=== PATIENT | male | born 1985 | race Caucasian/White ===

== ENCOUNTER 2023-08-05 11:04 | Emergency (ER) | payer OTHER, SELFPAY ==
[2023-08-05 11:09] VITALS: BP 141/98
--- NOTE | 2023-08-05 12:03 | ED.GENMED ---
History of Present Illness
General
Chief Complaint: Male Genito-Urinary Symptoms
Source: patient
Time Seen by Provider: 08/05/23 11:42
Travel History
Have you had any contact with someone who has COVID-19?: No
Do you have any symptoms of coronavirus? Fever > 100 degrees, chills, cough, shortness of breath, sore throat, loss of taste or smell, muscle aches, or headache?: No
History of Present Illness
History of Present Illness:
37-year-old male presenting the emergency department for evaluation after on July 26 he had 4 to 5 hours of persistent nausea and vomiting and subsequently developed generalized fatigue, weakness and pain in his right hip that has been constant, no
exacerbating or alleviating factors with pain now radiating towards his right groin. Patient states that the nausea and vomiting episodes have been occurring every few weeks and that he has not had any workup for this. Patient came into the
emergency department today due to concern of the persistent symptoms but also notes that he had a recent friend who had her from pancreatic cancer at a young age and he wanted to make sure everything was okay. He denies any
fevers, chills, rigors, current nausea or vomiting, bowel changes or urinary symptoms. Patient did go to urgent care this past Sunday where he had a urinalysis done which was unremarkable and the culture did not grow any bacteria.
Past History
Past History
ED Past Medical History: None
ED Past Surgical History: None
Social History
Tobacco: Non-smoker
Alcohol: Occasional
Drug: None
Personal:
Living: with family
Employment: Employed
Review of Systems
Review of Systems
All Other Systems: ROS reviewed and negative except as documented in HPI and ROS
Phy Exam
Physical Exam
Physical Exam:
GENERAL: Alert , in no apparent distress
EYE: clear conjunctiva b/l
HEAD: NCAT
ENT: o/p clr, mmm.
CARDIAC: Regular rate and rhythm .
LUNGS: Clear breath sounds bilaterally, no acute respiratory distress, no wheezes/rales/rhonchi
ABDOMEN: Soft, without focal tenderness, no r/g, no cvat, no tenderness at McBurney's point
Genitourinary: Circumcised, positive cremasteric reflex bilateral, no hernia, no testicular tenderness or edema
NEUROLOGICAL: Alert and oriented
SKIN: Warm and dry, skin intact.
MUSCULOSKELETAL: No edema, well perfused.
PSYCH: Normal and appropriate interaction.
Scores
Heart Failure Risk
Heart Failure Risk Score: Not Applicable
Heart Score for Chest Pain Patients
STEMI patient?: Not applicable
Withdrawal Assessment of Alcohol
Withdrawal Assessment Completed?: Not applicable
Course
Orders/Labs/Results
Orders:
Orders
08/05/23 11:59
CT Abd/pelvis W Iv Cont Urgent
Comment:
Reason For Exam: right hip pain, moving towards groin, hx stones
08/05/23 12:08
Complete Blood Count/With Diff Urgent
Comprehensive Metabolic Panel Urgent
Lipase Urgent
Abnormal Lab Results
08/05/23
12:08
MCH 31.6 H pg
(27.0-31.0)
Absolute Neuts (auto) 6.9 H 10^3/uL
(1.4-6.5)
Lymphocytes % 18.3 L %
(20.5-51.1)
Glucose 103 H mg/dl
(70-99)
Calcium 10.4 H mg/dl
(8.4-10.2)
Albumin 5.1 H g/dl
(3.5-5.0)
08/05/23 12:08
08/05/23 12:08
Vital Signs
Initial and Last Documented VS:
Initial Vital Signs
Temp Pulse Resp BP Pulse Ox
97.9 F 95 17 141/98 100
08/05/23 11:09 08/05/23 11:09 08/05/23 11:09 08/05/23 11:09 08/05/23 11:09
Last Documented Vital Signs
Temp Pulse Resp BP Pulse Ox
97.9 F 67 18 141/76 100
08/05/23 11:09 08/05/23 15:49 08/05/23 15:49 08/05/23 15:49 08/05/23 15:49
MDM/Problems Addressed
Differential Diagnosis Includes:
Serum sickness, anxiety, no concern for hernia or kidney stone, appendicitis considered given right-sided pain however patient's pain is mainly on the right hip and not within the abdomen 37-year-old
MDM/Problems Addressed:
37-year-old male presenting emergency department for evaluation of generalized weakness/fatigue, right-sided hip pain after having a few hours of vomiting about 10 days ago. Was evaluated at urgent care with no abnormal findings on urinalysis and
urine culture. Overall exam here is very reassuring. Unclear as to patient's etiology for his intermittent nausea and vomiting episodes. Possible viral etiology. Will obtain labs and CT imaging. Anticipate discharge home.
*Pulse Oximetry
Patient hypoxic: no
*Critical Care Note
Total Time (30-74mins, 75-104mins- exclusive of procedures): Not Applicable
Data Reviewed
Review of Other/Old Records Reveals: Labs and Radiology Studies
Patient Management
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
Escalation/DeEscalation of care consider admission/obs:
2:23 PM: Patient CT scan shows concern for possible appendicitis. Patient's abdomen is reassuring and he is not having any right lower quadrant pain however given the CT read I notified general surgery who will come to the emergency department to
evaluate the patient to help with disposition planning.
3:45 PM: Patient seen and evaluated by general surgery who does not feel patient's symptoms are likely acute appendicitis but do recommend a treatment course of Augmentin twice daily x 10 days and outpatient follow-up in office. Patient advised on
return precautions emergency department for any worsening pain, fevers, vomiting or any other concerns he may have. Patient is in agreement with this plan. Stable for discharge home.
ED Attending Note
-
Portions of this chart may have been created with voice recognition software.� Occasional wrong word or��sound alike� substitutions may have occurred due to the inherent limitations of voice recognition software.
Discharge Plan
Departure
Patient Disposition: Home (Routine Discharge)
Date of Disposition: 08/05/23
Time of Disposition: 15:48
Patient with high blood pressure during this ER visit?: No
Discharge Problem:
Abdominal pain
Prescriptions:
New
amoxicillin-pot clavulanate 875-125 mg tablet
1 tab PO BID 10 Days Qty: 20 0RF
No Action
dicyclomine 20 mg tablet
20 mg PO QID PRN (Reason: abdominal pain) Qty: 10 0RF
ondansetron 4 mg tablet,disintegrating
4 mg PO Q8H PRN (Reason: nausea and vomiting) Qty: 10 0RF
pantoprazole [Protonix] 40 mg tablet,delayed release (DR/EC)
40 mg PO DAILY Qty: 20 0RF
Referrals:
Severo Hopper MD [Active] - (Surgery - Call for appointment)
UNKNOWN - PT DOES,NOT KNOW [Family Provider] -
Interventions
Interventions:
*Risk Screen - Suicide Last Done: 08/05/23 12:12
*General Assessment Last Done: 08/05/23 12:12
*Neglect/Abuse Screening Last Done: 08/05/23 12:12
ED- Fall Risk Assessment Last Done: 08/05/23 12:12
*ED COVID-19 Vaccine History Last Done: 08/05/23 12:12
*Nursing Disposition Last Done: 08/05/23 15:54
ED-Male Genitourinary Assessment Last Done: 08/05/23 12:11
Discharge Date and Time
Discharge Date/Time: 08/05/23 15:56
Print Language: SETSWANA
[2023-08-05 12:25] LABS: % Basophils 0.6 % (0-2); % Eosinophils 0.1 % (0-6); % Immature Granulocytes 0.2 % (0-0.5); % Lymphocytes 18.3 % (20.5-51.1); % Monocytes 6.3 % (1.7-9.3); % Neutrophils 74.5 % (42.2-75.2); Absolute Basophils 0.1 10^3/uL (0-0.2); Absolute Lymphocytes 1.7 10^3/uL (1.2-3.4); Absolute Monocytes 0.6 10^3/uL (0.1-0.6); Absolute Neutrophils 6.9 10^3/uL (1.4-6.5); Hemoglobin 15.4 g/dL (13.0-18.0); Mean Corpuscular Hgb 31.6 pg (27.0-31.0); Mean Corpuscular Volume 90.2 fL (80.0-94.0); Mean Platelet Volume 9.8 fL (7.4-10.4); Nucleated Red Blood Cells % 0 % (-); Platelet Count 270 10^3/uL (130-400); Red Blood Cell Count 4.88 10^6/uL (4.70-6.10); Red Cell Dist. Width 12.7 % (11.5-14.5); White Blood Cell Count 9.3 10^3/uL (4.8-10.8)
[2023-08-05 12:35] LABS: ALT (SGPT) 27 U/L (0-50); AST (SGOT) 26 U/L (17-59); Albumin 5.1 g/dl (3.5-5.0); Alkaline Phosphatase 54 U/L (38-126); Blood Urea Nitrogen 20 mg/dl (9-20); Calcium 10.4 mg/dl (8.4-10.2); Carbon Dioxide 26 mmol/L (22-30); Chloride 105 mmol/L (98-107); Glucose 103 mg/dl (70-99); Lipase 49 U/L (23-300); Potassium 4.2 mmol/L (3.5-5.1); Sodium 137 mmol/L (135-145); Total Bilirubin 0.9 mg/dl (0.2-1.3); Total Protein 7.9 g/dl (6.3-8.2); eGFR > 60.00
[2023-08-05 14:35] VITALS: BP 130/81
[2023-08-05 15:49] VITALS: BP 141/76
--- NOTE | 2023-08-05 15:51 | CON.GS ---
Consultation
-
Requesting Provider: Quintin
Performing Provider: Marcela Hopper
Reason for Consultation: ?appendicitis
Medical History
-
Chief Complaint: poor appetite
History of Present Illness:
This is a 37 yo male with a history of renal stones and ureteroscopy who presents with right groin pain which began about 1 week ago. He notes that about 9 days ago, he had an evening of nausea with vomiting with onset of discomfort and has not had
much of an appetite since. He presents today at the urging of his mother given the length of his symptoms. He denies changes to bowel or bladder habits. He did present to urgent care about 5 days ago as he was concerned that his pain was related to
a kidney stone with UA done at that time and negative. There is a very small focal area of tenderness to the right inguinal region without hernia or palpable mass noted. No abdominal tenderness. He denies fevers or chills at home. For the past week,
he has just been drinking liquids and eating toast or applesauce due to loss of appetite and general discomfort with eating. Today, he went to the gym for his normal work out but was feeling discomfort and generally unwell and walked on the
treadmill for an hour instead of his usual work out of heavy lifting.
Past Medical History
Past Medical History: Other (Nephrolithiasis)
Past Surgical History: Urological (Uretersocopy/laser lithotripsy)
Social History
Tobacco: Non-Smoker
Alcohol: None
Personal:
Living: With Family
Family History
Family History: Reviewed & Not Pertinent
Allergies / Home Medications
Allergy/AdvReac Type Severity Reaction Status Date / Time
acetaminophen [From Tylenol] Allergy Anaphylaxis Verified 09/27/22 03:54
aspirin Allergy Tongue Verified 09/27/22 03:54
Swelling
ibuprofen Allergy Anaphylaxis Verified 09/27/22 03:54
[From DayQuil Sinus
Pressure/Pain]
NSAIDS (Non-Steroidal Allergy Anaphylaxis Verified 09/27/22 03:54
Anti-Inflamma
pseudoephedrine HCl Allergy Anaphylaxis Verified 09/27/22 03:54
[From DayQuil Sinus
Pressure/Pain]
�Medication �Instructions �Recorded �Confirmed �Type
dicyclomine 20 mg tablet 20 mg PO QID PRN abdominal pain 09/27/22 Rx
#10 tabs
ondansetron 4 mg disintegrating 4 mg PO Q8H PRN nausea and 09/27/22 Rx
tablet vomiting #10 tabs
pantoprazole 40 mg tablet,delayed 40 mg PO DAILY #20 tabs 09/27/22 Rx
release (Protonix)
amoxicillin 875 mg-potassium 1 tab PO BID 10 days #20 tabs 08/05/23 Rx
clavulanate 125 mg tablet
Review of Systems
-
History Source: Patient and Family
All other systems: Negative unless noted
A 10 point review of systems was completed, and was negative except as per HPI.
Physical Exam
Vital Signs
Temp Pulse Resp BP Pulse Ox
97.9 F 67 18 141/76 100
08/05/23 11:09 08/05/23 15:49 08/05/23 15:49 08/05/23 15:49 08/05/23 15:49
Lab Results
08/05/23 12:08
08/05/23 12:08
WBC 9.3 10^3/uL (4.8-10.8) 08/05/23 12:08
Hgb 15.4 g/dL (13.0-18.0) 08/05/23 12:08
Hct 44.0 % (39.0-52.0) 08/05/23 12:08
Plt Count 270 10^3/uL (130-400) 08/05/23 12:08
Abs Immat Gran (auto) 0.0 10^3/uL (0-0.05) 08/05/23 12:08
Neutrophils % 74.5 % (42.2-75.2) 08/05/23 12:08
Physical Exam
General: Well Developed, Well Nourished and No Apparent Distress
HEENT: Normocephalic
Respiratory: Non Labored Respirations
Cardiac: Regular Rhythm
GI: Soft, Non Tender and Normal Bowel Sounds
Genito-urinary: Other (right inguinal area with very small area of tenderness, tense with exam); Negative Inguinal Hernia
Skin: Warm and Dry
Neuro: Awake and AO x 3
Psych: Other (anxious)
Data Reviewed
-
CT Scan: Image Personally Visualized and interpreted, Report Reviewed by me, Discussed with Physician, Discussed with Nurse, Discussed with Patient and Discussed with Family
Labs: Labs Reviewed by me, Discussed with Physician, Discussed with Nurse, Discussed with Patient and Discussed with Family
Old Records: Reviewed
Assessment / Plan
-
37 yo male with PMH of nephrolithiasis and ureteroscopy who c/o poor appetite and right inguinal pain x7-9 days. Episode of nausea and vomiting at beginning of symptoms but none since. No leukocytosis or fevers. Benign exam. CT imaging with enlarged
appendix without appendicolith, no surrounding inflammation/stranding. Discussed CT findings with patient. Possible mild appendicitis vs right groin strain. Discussed options with patient including surgical intervention with lap appendectomy vs
course of antibiotics.
--Start PO Augmentin x10 day course
--PO challenge
--If tolerating PO intake without increase in pain, ok to d/c from ED with outpatient surgical follow up
== END 2023-08-05 15:56 | disposition home or self-care (01) ==
LOC: EMR 11:04
PROVIDERS: Physician Assistant Medical; EMERGENCY PHYSICIAN Emergency Medicine; OTHER PHYSICIAN Surgery
DX: R10.31 Right lower quadrant pain (principal); R11.2 Nausea with vomiting, unspecified; M25.551 Pain in right hip; R53.83 Other fatigue; R53.1 Weakness; R63.0 Anorexia; Z87.442 Personal history of urinary calculi
CPT/HCPCS: 99285; 74177; 80053; 83690; 85025; Q9967